=== PATIENT | male | born 1955 | race Caucasian/White ===

== ENCOUNTER → 2018-04-18 07:38 | Outpatient (CLI) | payer OTHER, SELFPAY ==
[2018-04-18 10:23] LABS: ALB/GLOB Ratio 1.2 RATIO (0.9-2.4); AST(SGOT) 26 U/L (15-37); Alanine Aminotransfer ALT/SGPT 25 U/L (16-61); Albumin, Serum 3.7 g/dL (3.2-5.0); Alkaline Phosphatase 60 U/L (45-117); Anion Gap 5 (5-15); BUN 18 mg/dL (7-18); BUN/Creat Ratio 20.3 RATIO (10-20); Calcium,Total 8.4 mg/dL (8.5-10.1); Chloride 102 mmol/L (98-107); Cholesterol 152 mg/dL (200); Creatinine, Serum 0.89 mg/dL (0.70-1.30); EST Glomerular Filtration Rate 92 mL/min (>60); Est Glom Filt Rate - Afr Amer 112 mL/min (>60); Globulin 3.1 g/dL (2.2-4.2); Glucose 85 mg/dL (74-106); High Density Lipoprotein 60 mg/dL; PSA,Total - Annual Screen 0.45 ng/mL (0.00-4.00); Potassium 3.9 mmol/L (3.5-5.1); Protein, Total 6.8 g/dL (6.4-8.2); Sodium Level 137 mmol/L (136-145); Triglycerides 39 mg/dL; Very Low Density Lipoprotein 8 mg/dL (5-40)
== END ==
PROVIDERS: Family Provider Family Medicine; PCP Family Medicine; Referring Provider Family Medicine; Visit Provider Family Medicine
DX: Z00.00 Encounter for general adult medical examination without abnormal findings (principal)
CPT/HCPCS: 36415; 80053; 80061; 84153; G0103

== ENCOUNTER → 2018-07-04 16:35 | Outpatient (CLI) | payer OTHER, SELFPAY ==
[2018-07-04 16:01] VITALS: BMI 23.1
--- NOTE | 2018-07-04 16:40 | RAD_ITS ---
STUDY: X-RAY - LEFT ELBOW REASON FOR EXAM: Male, 63 years old. Pain TECHNIQUE: 3 view(s) of the elbow. COMPARISON: None. FINDINGS: Normal visualized humerus, radius and ulna. Normal radiocapitellar and ulnotrochlear articulations. The soft tissue structures are unremarkable. RAD/Elbow min 3 Views IMPRESSION: Normal x-ray examination of the elbow. Electronically Signed: Tashi Baxter MD at 17:52 EST , Service support ,
--- OUTSIDE RECORDS SUMMARY | 2018-08-20 14:15 | XMS RPT_ITS ---
:1955 Author Organization OHIP Care Team Providers Name Role Phone Yari Rojas DO Attending Unavailable Crystal JEREZ, Yari Consulting Unavailable Brown, Adair Attending Unavailable Brown, Adair Referring Unavailable Brown, Adair Attending Unavailable Brown, Adair Referring Unavailable Brown, Adair Primary Care Unavailable Brown, Adair Attending Unavailable Brown, Adair Referring Unavailable Brown, Adair Attending Unavailable Brown, Adair Referring Unavailable Brown, Adair Primary Care Unavailable Purpose Purpose PROBLEMS PROBLEMS DATE TYPE CONDITION / CODE ATTENDING STATUS SOURCE 07/04/2018 Unknown M25.529 - Pain in Brown, Adair Active [facility] unspecified elbow [facility] / M25.529(ICD-10) Hospital Repository 04/18/2018 Unknown Z00.00 - Brown, Adair Active [place] Encounter for [place] medical Repository examination without abnormal findings / Z00.00(ICD-10) PROCEDURES PROCEDURES No Procedure Records FoundVITAL SIGNS VITAL SIGNS No Vital Signs Records FoundRESULTS RESULTS ELBOW MIN 3 VIEWS Observed: 07/04/2018 Status: F Source: [place] 4:41 PM [facility], [facility] HOSPITAL REPOSITORY [facility] Imaging Services [address] [place] [address] Elbow min 3 Views MR#: [id number] Acct: [id number] Name: MAGDY NÚÑEZ Rep #: [id number] : 1955 M 63 From: Tevin Baxter MD PCP: Adair Ramon DO Status: REG CLI Study: Elbow min 3 Views Date of Exam: 07/04/18 Exam# [id number] Ordering Dr: Adair Ramon DO STUDY: X-RAY - LEFT ELBOW REASON FOR EXAM: Male, 63 years old. Pain TECHNIQUE: 3 view(s) of the elbow. COMPARISON: None. FINDINGS: Normal visualized humerus, radius and ulna. Normal radiocapitellar and ulnotrochlear articulations. The soft tissue structures are unremarkable. RAD/Elbow min 3 Views IMPRESSION: Normal x-ray examination of the elbow. 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 Machine Operator: Signed INTERNAL MEDICINE Observed: 07/04/2018 Status: F Source: [place] OFFICE VISIT 4:29 PM [facility] Internal Medicine [address] [place] [address] [place] [address] OFFICE VISIT Date of Service: 07/04/18 MR#: [id number] Acct: [id number] Name: MAGDY NÚÑEZ Rep #: [id number] : 1955 Provider: Adair Ramon DO Age/Sex: 63/M Location: [facility] Status: Signed Intake Vital Signs07/04/18 Body Mass Index (BMI) 23.1 07/04/18 Height 6 ft 07/04/18 Weight: 169 lb 07/04/18 Body Mass Index (BMI) 22.9 07/04/18 Blood Pressure 156/81 H Intake Visit Reasons: Elbow pain Chief Complaint: Left Elbow pain Is patient in pain?: Yes (Left elbow pain - pt doesn't know scale) Allergies No Known Allergies Allergy (Unverified 07/04/18 16:01) Medications NK 04/17/18 [History Confirmed 07/04/18] PFSH Medical History Closed fracture of phalanx of foot (Acute) Hypertension (Chronic) Surgical History History of colonoscopy (Acute) History of orthopedic surgery (Acute) History of tonsillectomy (Acute) Family History Father Heart disease Arthritis Alcoholism Mother Hypertension Heart disease Social History Smoking Status: Former smoker how long ago did patient quit smokin alcohol intake: never substance use type: does not use what type of physical activity do you participate in: walking, weight training HPI HPI Chief Complaint: Left Elbow pain Details: MAGDY NÚÑEZ, is a 63 M who presents to the office today for evaluation of chronic elbow pain. Pain is been on and off for several months sometimes bad sometimes not so bad. He cannot relate this to any acute injury. ROS Const Constitutional: No chills, fatigue, fever(s), frequent falls, malaise, weakness, sleep problems or change in appetite Eyes Eyes: No blurry vision, change in vision, double vision, discharge or visual disturbances ENT ENT: No abnormal hearing, ear pain, ear pressure, tinnitus or dizziness/vertigo Resp Respiratory: No cough, shortness of breath or wheezing Cardio Cardiology: No chest pain at rest, chest pain with exertion, shortness of breath, dyspnea on exertion, generalized swelling, irregular heart rhythm, lightheadedness, orthopnea, fast heart rate or palpitations Gastro GI: No abdominal pain, change in bowel habits, constipation, diarrhea, nausea/dyspepsia or vomiting Genitourinary Male: No difficulty urinating, burning urination, painful urination, urinary incontinence, urinary frequency, urinary urgency, urinary hesitancy, urinary retention, blood in urine, Frequent nighttime urination/ nocturia, sexual problems, testicle lump or testicle pain Musc Musculoskeletal: Positive for joint pain (Left elbow); no back pain, joint swelling, limited range of motion, numbness or tingling Skin Skin: No change in skin color, itching, rash or wounds Breast Breast: No breast lump or breast pain Neuro Neurology: No frequent falls, weakness, abnormal hearing, numbness, tingling, unsteady gait/balance, dizziness, loss of vision, memory loss or visual disturbances Psych Psychiatric: No memory loss, No anxiety, No change in appetite, No depression, No Thoughts of harming yourself/Others Endo Endocrine: No fatigue, heat intolerance, increased thirst/drinking, increased hunger or increased urination Aller/Imm Allergy/Immunologic: No wheezing, itchy eyes or seasonal allergy symptoms Isai/Lymp Hematologic/Lymphatic: No easy bleeding, easy bruising or enlarged lymph nodes Exam Const General: cooperative, healthy appearing Musc Musculoskeletal: Yes joint tenderness (medial elbow pain) Assessment AND Plan 1. Medial epicondylitis of left elbow M77.02 Plan Patient was seen with a classic medial epicondylitis or golfer's elbow. The medial epicondyles appears more prominent on the left than the right so I got an x-ray to make sure there was no spurring, but I expect the x-ray will be normal. He was told to get a tennis elbow strap, told that anti-inflammatories are very little to help for this, and told that if this does not work with the strap and stretching exercises then the next step possibly might be to inject the elbow. Plan Detail Other Orders Orders: Coding Level of Care Code Off vis,est,level 3 Diagnoses Medial epicondylitis of left elbow M77.02 Laterality: left 07/04/18 1629 <Electronically signed by Adair Ramon DO> Date Adair Ramon DO Cosigner Signature: Date (if applicable) CC: COMPREHENSIVE METABOLIC Collected: 04/18/2018 Status: F Source: [place] VIVIEN 7:46 AM [facility] REPOSITORY TYPE CODE TESTS RESULT OUT OF RANGE REFERENCE UNITS LAB L501.0100 74-106 mg/dL Normal GLU 85 Result Comment: Please note revised GLUCOSE reference range effective 2017. LAB L501.1000 7-18 mg/dL Normal BUN 18 LAB L501.1100 0.70-1.30 mg/dL Normal CREAT,SERUM 0.89 Result Comment: The validity of the calculated GFR AND GFRAA in patients over 70 years has not been determined. Clinical correlation is essential. LAB L501.1110 >60 mL/min Normal EST GFR 92 Result Comment: Non- GFR Calc LAB L501.1115 >60 mL/min Normal EST GFR - AA 112 Result Comment: GFR Calc LAB L501.1300 10-20 RATIO High BUN/CRE 20.3 LAB L501.1500 6.4-8.2 g/dL T Normal PROT 6.8 LAB L501.1800 3.2-5.0 g/dL Normal ALB 3.7 LAB L501.1950 2.2-4.2 g/dL Normal GLOB 3.1 LAB L501.2000 0.9-2.4 RATIO Normal A/G 1.2 LAB L501.2200 8.5-10.1 mg/dL Low CA 8.4 LAB L501.4100 15-37 U/L Normal AST 26 LAB L501.4305 45-117 U/L Normal ALK P 60 LAB L501.4405 16-61 U/L Normal ALT 25 LAB L501.4600 0.20-1.00 mg/dL T Normal BILI 0.90 LAB L501.5300 136-145 mmol/L NA Normal 137 LAB L501.5600 3.5-5.1 mmol/L K Normal 3.9 LAB L501.5900 98-107 mmol/L CL Normal 102 LAB L501.6100 21.0-32.0 mmol/L Normal CO2 30.0 LAB L501.6200 5-15 Normal GAP 5 Performed By: #### L500.4050, L500.4100, L501.9910 #### [facility] [address] [place], [place], [address] LIPID PROFILE Collected: 04/18/2018 Status: F Source: [place] 7:46 AM [facility] REPOSITORY TYPE CODE TESTS RESULT OUT OF RANGE REFERENCE UNITS LAB L501.4900 200 mg/dL Normal CHOL 152 Result Comment: <200 mg/dL Desirable 200-240 mg/dL Borderline >240 mg/dL High Risk LAB L501.5000 mg/dL Normal TRIG 39 Result Comment: The drugs N-Acetylcysteine and Metamizole may falsely depress this assay. Serum Triglycerides Reference Interval Normal <150 mg/dL Borderline high 150 - 199 mg/dL High 200 - 499 mg/dL Very High > or = 500 mg/dL LAB L501.6400 mg/dL Normal HDL 60 Result Comment: The drugs N-Acetylcysteine and Metamizole may falsely depress this assay. Reference Range HDL <40 mg/dL Low HDL Cholesterol HDL >or= 60 mg/dL High HDL Cholesterol LAB L501.6500 0-130 mg/dL Normal LDL 84 LAB L501.6600 5-40 mg/dL Normal VLDL 8 Performed By: #### L500.4050, L500.4100, L501.9910 #### [facility] [address] [place], [address] PSA,TOTAL - ANNUAL Collected: 04/18/2018 Status: F Source: [place] SCREEN 7:46 AM [facility] REPOSITORY TYPE CODE TESTS RESULT OUT OF RANGE REFERENCE UNITS LAB L501.9910 0.00-4.00 ng/mL Normal PSA,TOT 0.45 SCREEN Result Comment: This test was performed using the TPSA assay method for the ChangePanda chemistry system. Values obtained with different assay methods cannot be used interchangably. When changing PSA assays in the course of monitoring a patient, additional sequential testing should be carried out to confirm baseline values. Performed By: #### L500.4050, L500.4100, L501.9910 #### [facility] [address] [place], [address] INTERNAL MEDICINE Observed: 04/17/2018 Status: F Source: [place] OFFICE VISIT 12:52 PM [facility] REPOSITORY [facility] [address] [place] [address] [place] [address] OFFICE VISIT Date of Service: 04/17/18 MR#: [id number] Acct: [id number] Name: MAGDY NÚÑEZ Rep #: [id number] : 1955 Provider: Adair Ramon DO Age/Sex: 62/M Location: [facility] Status: Signed Intake Vital Signs04/17/18 Height 6 ft Intake Visit Reasons: ANNUAL CHECK UP Chief Complaint: well check Is patient in pain?: No Allergies No Known Allergies Allergy (Unverified 04/17/18 11:22) Medications NK 04/17/18 [History Confirmed 04/17/18] [facility] History Closed fracture of phalanx of foot (Acute) Hypertension (Chronic) Surgical History History of colonoscopy (Acute) History of orthopedic surgery (Acute) History of tonsillectomy (Acute) Family History Father Heart disease Arthritis Alcoholism Mother Hypertension Heart disease Social History Smoking Status: Former smoker how long ago did patient quit smokin alcohol intake: never substance use type: does not use what type of physical activity do you participate in: walking, weight training HPI HPI Chief Complaint: well check Details: MAGDY NÚÑEZ, is a 62 M who presents to the office today for a routine check up. He has occasional light headed spells. ROS Const Constitutional: No weight change, body ache, chills, fatigue, sleep problems, fever(s), change in appetite, snoring, weakness, frequent falls, headache(s) or excessive sweating Eyes Eyes: No change in vision, eye pain, light sensitivity or blurry vision ENT ENT: No headache(s), abnormal hearing, ear pain, tinnitus, nasal congestion, sore throat or neck pain Resp Respiratory: No snoring, cough, shortness of breath or wheezing Cardio Cardiology: No excessive sweating, chest pain at rest, chest pain with exertion, shortness of breath, dyspnea on exertion, palpitations, orthopnea or lightheadedness Gastro GI: No abdominal pain, change in bowel habits, constipation, diarrhea, vomiting, nausea/dyspepsia or cramping Genitourinary Male: No painful urination, urinary incontinence, urinary frequency, urinary urgency, blood in urine, testicle pain or other Musc Musculoskeletal: No neck pain, abnormal walking, joint pain, back pain, limited range of motion, numbness or tingling Skin Skin: No redness, dry skin, itching, lesions, wounds or rash Neuro Neurology: No weakness, frequent falls, headache(s), abnormal hearing, abnormal walking, numbness, tingling, abnormal speech, dizziness or memory loss Psych Psychiatric: No change in appetite, No memory loss, No anxiety, No depression, No Thoughts of harming yourself/Others Endo Endocrine: No fatigue, excessive sweating, cold intolerance, increased thirst/drinking, heat intolerance, flushing or increased hunger Aller/Imm Allergy/Immunologic: No wheezing, itchy eyes, hives or seasonal allergy symptoms Isai/Lymp Hematologic/Lymphatic: No easy bleeding, easy bruising or enlarged lymph nodes Exam Const General: cooperative Nutritional Appearance: average body habitus Orientation: oriented x3 [facility] Head: normal to inspection Ears: hearing grossly normal bilaterally, TM's normal bilaterally Nose: external nose normal, nasal mucous membranes and turbinates normal Face and sinus: normal facial exam Mouth: oral mucosae normal Teeth and gingiva: dentition normal Throat: posterior oropharynx normal Eyes Pupils: PERRL Neck Neck: no lymphadenopathy Neck mass: No Thyroid: thyroid normal Resp Effort AND Inspection: normal respiratory effort, symmetric chest movement Auscultation: Bilateral: Clear to Auscultation Cardio Palpation: normal PMI Rate: regular rate Rhythm: regular rhythm Heart Sounds: S1 normal, S2 normal GI Inspection: normal to inspection Auscultation: normal bowel sounds Percussion: normal to percussion Palpation: no hepatosplenomegaly Rectal Exam: visual inspection normal, normal sphincter tone, prostate normal Penis: normal penis Scrotum: scrotum normal Testes: normal Skin General: no rashes or lesions noted Lesions: no lesions Neuro General: oriented x3 Cranial Nerves: CN's II-XI intact bilaterally Extrem General: no clubbing, cyanosis or edema Psych Appearance: grossly normal Mental Status: mental status grossly normal Speech and Movement: speech and movement normal Attitude: cooperative Assessment AND Plan Problems 1. Annual physical exam Z00.00 Plan This patient was seen for an annual physical examination he has a history of some dizzy spells but he thinks it is due to his bifocals because it tends to be when he is focusing closely and then gets back and focus is far it is very short transient and not terribly significant. Physical examination was entirely within normal limits labs were ordered patient is on no medications and is doing well. His immunizations are up-to-date he inquired about a pertussis but he had a date PT 3 years ago shingles vaccine is up-to-date and his colonoscopy needs to be done next year. Orders Orders: Plan Detail Follow Up 1 Year Coding Level of Care Code Off vis,est,prev 40-64yrs Diagnoses Annual physical exam Z00.00 04/17/18 1252 <Electronically signed by Adair Ramon DO> Date Adair Shaver Signature: Date (if applicable) CC: ALLERGIES ALLERGIES DATE TYPE / CODE NAME / CODE REACTION SEVERITY SOURCE 07/04/2018 Drug No Known Unknown [facility] Allergy/4160 Allergies/F00 Hospital [address]042(SNOMED 8538148(RXNOR Repository CT) M) ENCOUNTERS ENCOUNTERS ADMIT/DISCHARGE ACCOUNT ADMITTING ENCOUNTER LOCATION SOURCE NUMBER CLASS 08/14/2018 [id number] Ambulatory Building:[facility] [place] Practices Repository 07/04/2018 [id number] Ambulatory [facility] [place] [address] [facility] ing:MTRAD Repository 07/04/2018/ [id number] Ambulatory BMSBuilding:B [facility] 8 9 MS.BIM [facility] Repository 04/18/2018 [id number] Ambulatory [place] [facility] [address] [facility] ing:MTLAB Repository 04/17/2018/ [id number] Ambulatory BMSBuilding:B [facility] 8 0 [facility] Repository FUNCTIONAL STATUS FUNCTIONAL STATUS No Functional Status Records FoundEQUIPMENT EQUIPMENT No Equipment Records FoundPAYERS PAYERS ENCOUNTER GUARANTOR PAYER SUBSCRIBER SOURCE 08/14/2018 Magdy Henderson [facility] RouthDOB: Insurance:Medical RouthDOB: Repository [facility] [id number] [facility] Number: [facility] [id number] [place], [place] [address]Ehl: Date:9963-36-43[place] [address]Mbt: Name:Israel Dorsey (YX) [address], [place] () [id number]: 07/04/2018 MAGDY Henderson [place] [id number] [facility] Insurance:[facility] ROUTHDOB: [facility] [address]Gcarnh [id number] Hospital [address]Jlc: (330) Number: Repository [phone] () [id number] Date:1061-12-87PN [facility] [address], [place] [address]ZM: 07/04/2018 Secondary NOT GIVENUNK [facility] Insurance:SELF PAY [facility] Number: Effective Repository Date:2018-07-04 07/04/2018 MAGDY D Primary MAGDY D [place] [id number] [place] Insurance:UNITED ROUTHDOB: [facility] [id number] Hospital [address]Ecv: (330) Number: Repository [phone] () [id number] Date:2957-45-17XI [address] [address]HB: 07/04/2018 Secondary NOT GIVENUNK [place] Insurance:SELF PAY [facility] Number: Effective Repository Date:2018-07-04 04/18/2018 MAGDY D Primary MAGDY D [facility] [id number] Insurance:UNITED ROUTHDOB: [facility] [id number] Hospital [address]Kfh: (330) Number: Repository [phone] () [id number] Date:1826-42-60KQ [address] [address]XE: 04/18/2018 Secondary NOT GIVENUNK [facility] Insurance:SELF PAY [facility] Number: Effective Repository Date:2018-04-18 04/17/2018 MAGDY [id number] Primary MAGDY ROUTHDOB: [place] [address] Insurance:[place] [id number] [address]Lvz: (330) Number: Repository [phone] () [id number] Date:7730-32-52UZ [address] [address]ZI: 04/17/2018 Secondary NOT GIVENUNK [place] Insurance:SELF PAY [facility] Number: Effective Repository Date:2018-04-17 SOCIAL HISTORY SOCIAL HISTORY No Social History Records FoundFAMILY HISTORY FAMILY HISTORY No Family History Records FoundPREGNANCY No Status Records FoundADVANCE DIRECTIVES ADVANCE DIRECTIVES No Advanced Directives Records FoundINFORMATION SOURCE INFORMATION SOURCE DATE CREATED AUTHOR AUTHOR'S ORGANIZATION 08/14/2018 [facility]
== END ==
PROVIDERS: Family Provider Family Medicine; PCP Family Medicine; Referring Provider Family Medicine; Visit Provider Family Medicine
DX: M25.522 Pain in left elbow (principal)
CPT/HCPCS: 73080

== ENCOUNTER → 2019-08-19 10:00 | Outpatient (CLI) | payer OTHER, SELFPAY ==
[2019-08-19 09:41] VITALS: BMI 23.1
[2019-08-19 12:21] LABS: Anion Gap 5 (5-15); BUN 24 mg/dL (7-18); BUN/Creat Ratio 24.5 RATIO (10-20); Calcium,Total 9.1 mg/dL (8.5-10.1); Chloride 105 mmol/L (98-107); Creatinine, Serum 0.98 mg/dL (0.70-1.30); EST Glomerular Filtration Rate 82 mL/min (>60); Est Glom Filt Rate - Afr Amer 99 mL/min (>60); Glucose 92 mg/dL (74-106); Potassium 4.3 mmol/L (3.5-5.1); Sodium Level 139 mmol/L (136-145)
== END ==
PROVIDERS: PCP Family Medicine; Referring Provider Family Medicine; Visit Provider Family Medicine
DX: Z00.00 Encounter for general adult medical examination without abnormal findings (principal)
CPT/HCPCS: 36415; 80048

== ENCOUNTER → 2020-08-11 12:05 | Outpatient (CLI) | payer MEDICARE, OTHER, SELFPAY ==
[2020-08-11 11:39] VITALS: BMI 23.8
[2020-08-11 14:07] LABS: ALB/GLOB Ratio 1.1 RATIO (0.9-2.4); AST(SGOT) 25 U/L (15-37); Alanine Aminotransfer ALT/SGPT 22 U/L (16-61); Albumin, Serum 3.6 g/dL (3.2-5.0); Alkaline Phosphatase 71 U/L (45-117); Anion Gap 5 (5-15); BUN 22 mg/dL (7-18); BUN/Creat Ratio 24.7 RATIO (10-20); Calcium,Total 8.6 mg/dL (8.5-10.1); Chloride 103 mmol/L (98-107); Cholesterol 166 mg/dL (200); Creatinine, Serum 0.89 mg/dL (0.70-1.30); EST Glomerular Filtration Rate 91 mL/min (>60); Est Glom Filt Rate - Afr Amer 110 mL/min (>60); Globulin 3.2 g/dL (2.2-4.2); Glucose 83 mg/dL (74-106); High Density Lipoprotein 62 mg/dL; Potassium 4.1 mmol/L (3.5-5.1); Protein, Total 6.8 g/dL (6.4-8.2); Sodium Level 137 mmol/L (136-145); Triglycerides 48 mg/dL; Very Low Density Lipoprotein 10 mg/dL (5-40)
== END ==
PROVIDERS: PCP Family Medicine; Referring Provider Family Medicine; Visit Provider Family Medicine
DX: Z00.00 Encounter for general adult medical examination without abnormal findings (principal); I10 Essential (primary) hypertension
CPT/HCPCS: 36415; 80053; 80061

== ENCOUNTER 2021-08-16 13:57 | Outpatient (CLI) | payer MEDICARE, OTHER, SELFPAY ==
--- NOTE | 2021-08-16 | LES_PTH ---
PATIENT: SALBADOR HESTER LOC: [facility] U#:[id number] AGE/SX: 66/M ROOM: RE08/16/[address]: Dr. 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 See comment. AM:rikki 08/18/2021 COMMENT The lesion is transected at the base. Complete excision of the lesion is recommended. Invasive carcinoma cannot be ruled out. Case has been reviewed in consultation with Dr. Morin who concurs with the above diagnosis. IDC:SJ MICROSCOPIC DESCRIPTION Slides are reviewed. GROSS DESCRIPTION Received is one container labeled with the patient's name and not further designated. The specimen consists of a shave biopsy of santiago-white skin measuring 0.5 x 0.5 x 0.1 cm. The specimen is inked, bisected and submitted entirely in one cassette. / VITALIY:rikki 08/17/2021 TC:0 CPT: 86679
[2021-08-16 15:55] LABS: ALB/GLOB Ratio 1.1 RATIO (0.9-2.4); AST(SGOT) 31 U/L (15-37); Alanine Aminotransfer ALT/SGPT 25 U/L (16-61); Albumin, Serum 3.7 g/dL (3.2-5.0); Alkaline Phosphatase 66 U/L (45-117); Anion Gap 5 (5-15); BUN 17 mg/dL (7-18); Calcium,Total 9.2 mg/dL (8.5-10.1); Chloride 102 mmol/L (98-107); Creatinine, Serum 0.85 mg/dL (0.70-1.30); EST Glomerular Filtration Rate 96 mL/min (>60); Est Glom Filt Rate - Afr Amer 116 mL/min (>60); Globulin 3.4 g/dL (2.2-4.2); Glucose 99 mg/dL (74-106); Potassium 3.8 mmol/L (3.5-5.1); Protein, Total 7.1 g/dL (6.4-8.2); Sodium Level 137 mmol/L (136-145)
== END 2021-08-16 23:59 | disposition short-term general hospital (02) ==
LOC: BIMLAB 13:59
PROVIDERS: PCP Family Medicine; Visit Provider Family Medicine
DX: C44.320 Squamous cell carcinoma of skin of unspecified parts of face (principal); L57.8 Other skin changes due to chronic exposure to nonionizing radiation
CPT/HCPCS: 36415; 80053; 88305

== ENCOUNTER → 2022-05-09 | Outpatient (CLI) | payer MEDICARE, OTHER, SELFPAY ==
[2022-05-09 16:53] LABS: Anion Gap 4 (5-15); BUN 18 mg/dL (7-18); BUN/Creat Ratio 20.8 RATIO (10-20); Calcium,Total 9.3 mg/dL (8.5-10.1); Chloride 100 mmol/L (98-107); Creatinine, Serum 0.87 mg/dL (0.70-1.30); EST Glomerular Filtration Rate 93 mL/min (>60); Est Glom Filt Rate - Afr Amer 113 mL/min (>60); Glucose 86 mg/dL (74-106); Potassium 4.3 mmol/L (3.5-5.1); Sodium Level 136 mmol/L (136-145)
== END | disposition home or self-care (01) ==
LOC: BIMLAB 15:54
PROVIDERS: PCP Family Medicine; Referring Provider Family Medicine; Visit Provider Family Medicine
DX: I10 Essential (primary) hypertension (principal)
CPT/HCPCS: 36415; 80048

== ENCOUNTER → 2023-07-25 | Outpatient (CLI) | payer MEDICARE, OTHER, SELFPAY ==
--- OUTSIDE RECORDS SUMMARY | 2023-07-25 14:47 | XMS RPT_ITS | CCD ---
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 Name Role Phone CrytsalYari Unavailable Unavailable Yari Rojas Unavailable Unavailable CrystalYari Unavailable Jah Myers Unavailable Ramon Felix Unavailable Unavailable Unavailable Unavailable Vianca Villareal Unavailable Unavailable Medications Completed/Discontinued Medications Medication Drug Class(es) Dates Sig (Normalized) Sig (Original) hydrocortisone 25 mg/ml topical cream (5 sources) Corticosteroid Start: 08-14-2018 End: 05-30-2019 Anusol-HC 2.5 % Rectal Cream 1/4 cream to external hemorroid bid for 0 days Quantity: 15 {Gram} Refills: 0 Ordered: 30-May-2019 Vianca Villareal LPN Start : 14-Aug-2018 End : 30-May-2019 Inactive NEGATED: Highlighted row has not occurred!drug or medication (5 sources) No Known Historical Medications Problems Active Problems Problem Classification Problem Date Documented Da te Episodic/Chronic Hemorrhoids (5 sources) External hemorrhoids; Translations: [External hemorrhoid] 08-14-2018 Episodic Other acquired deformities (3 sources) Deformity of rib; Translations: [Rib deformity] 05-30-2019 Episodic Other circulatory disease (5 sources) H/O: hypertension; Translations: [Hypertension] 08-14-2018 Episodic Residual codes; unclassified (10 sources) FH: Diabetes mellitus; Translations: [Family history of diabetes mellitus] 08-14-2018 Episodic Residual codes; unclassified (5 sources) H/O: Disorder; Translations: [Hemorrhoids] 08-14-2018 Episodic Residual codes; unclassified (1 source) Body mass index (BMI) 23.0-23.9, adult; Translations: [BMI 23.0-23.9, adult] 08-14-2018 Episodic Past or Other Problems Problem Classification Problem Date Documented Da te Episodic/Chronic Essential hypertension (5 sources) Benign hypertension; Translations: [Hypertension, benign] Resolved: 08-14-2018 08-14-2018 Chronic Results Test Name Value Interpretation Reference Range Facil ity Vital Signs Date Time Vital Sign Value Performing Clinician Facility 05-30-2019 11:53-0500 BMI (Body Mass Index) 23.22 kg/m2 Yarijuana Jeanon [facility] Work Phone: 05-30-2019 11:53-0500 Body Temperature 97.9 [degF] Yari Crystal [facility] Work Phone: Encounters Encounter Date Encounter Type Care Provider Facility Start: 05-30-2019 End: 05-30-2019 Office outpatient visit 5 minutes Yari Rojas [facility] Start: 05-30-2019 [facility] Start: 08-14-2018 End: 08-14-2018 Initial preventive medicine new patient 40-64yrs Yari Rojas [facility] Start: 07-29-2018 Patient encounter procedure Yari Rojas [facility] Start: 07-02-2017 End: 07-04-2017 Ambulatory [facility] Procedures Date Procedure Procedure Detail Performing Clinician Marcia Felix Plan of Treatment Date Care Activity Detail Author Start: 05-30-2019 Procedure Education Eprescribed prescriptions (G8553) [facility] Work Phone: Start: 08-14-2018 Procedure Education Eprescribed prescriptions (G8553) [facility] Work Phone: Start: 08-14-2018 Provider Instructions for Treatment [facility] Work Phone: Start: 08-14-2018 Glucose mass conc GLUCOSE (70737) [facility] Work Phone: Start: 08-14-2018 Protein mass conc LIPOPROTEIN, BLD, BY NMR (14646) [facility] Work Phone: [facility] Work Phone: BMI 23.0-23.9, a dult : Eprescribed prescriptions (G8553) [facility] Work Phone: Payers Date Payer Category Payer Unknown [id number] 1955 Unknown [id number] Unknown Medical [facility]3] Social History Date Type Detail Facility Alcohol Use: Former smoker [facility] Work Phone: Caffeine use Caffeine use [facility] Work Phone: Functional Status Date Assessment Result Facility 09-20-2018 LP-IR Score LP-IR Score 41 [facility] Work Phone: Summary Purpose Family History Unknown Family Member Name Dates Details Father Comments:alcoholic, heart di sease Status:Active Maternal Grandfather Comments:diabetes Status:Active Mother Comments:DM 2, heart disease Status:Active Paternal Grandfather Comments:alcoholic Status:Active Unknown Family Member Name Dates Details Father Comments:alcoholic, heart di sease Status:Active Maternal Grandfather Comments:diabetes Status:Active Mother Comments:DM 2, heart disease Status:Active Paternal Grandfather Comments:alcoholic Status:Active Unknown Family Member Name Dates Details Father Comments:alcoholic, heart di sease Status:Active Maternal Grandfather Comments:diabetes Status:Active Mother Comments:DM 2, heart disease Status:Active Paternal Grandfather Comments:alcoholic Status:Active Advance Directives Name Dates Details Immunization Registry [place] - Effective on 08/14/2018. Expiration date unspecified Effective:14-Aug-2018 Name Dates Details Immunization Registry [facility] - Effective on 08/14/2018. Expiration date unspecified Effective:14-Aug-2018 Name Dates Details Immunization Registry [facility] - Effective on 08/14/2018. Expiration date unspecified Effective:14-Aug-2018 Instructions Name Dates Details BMI 23.0-23.9, adult : How t o access health information online Indication:BMI 23.0-23.9, adult BMI 23.0-23.9, adult : How t o access health information online - Detail Indication:BMI 23.0-23.9, adult BMI 23.0-23.9, adult : Patie nt Instructions Indication:BMI 23.0-23.9, adult Name Dates Details How to access health informa tion online Indication:Nonsmoker Start:30-May-2019 Instruction Type:Patient Education How to access health informa tion online - Detail Indication:Nonsmoker Start:30-May-2019 Instruction Type:Patient Education Patient Instructions Indication:Nonsmoker Start:30-May-2019 Instruction Type:Provider Instructions for Treatment How to access health informa tion online Indication:BMI 23.0-23.9, adult Start:14-Aug-2018 Instruction Type:Patient Education How to access health informa tion online - Detail Indication:BMI 23.0-23.9, adult Start:14-Aug-2018 Instruction Type:Patient Education Patient Instructions Indication:BMI 23.0-23.9, adult Start:14-Aug-2018 Instruction Type:Provider Instructions for Treatment Name Dates Details How to access health informa tion online Indication:Nonsmoker Start:30-May-2019 Instruction Type:Patient Education How to access health informa tion online - Detail Indication:Nonsmoker Start:30-May-2019 Instruction Type:Patient Education Patient Instructions Indication:Nonsmoker Start:30-May-2019 Instruction Type:Provider Instructions for Treatment How to access health informa tion online Indication:BMI 23.0-23.9, adult Start:14-Aug-2018 Instruction Type:Patient Education How to access health informa tion online - Detail Indication:BMI 23.0-23.9, adult Start:14-Aug-2018 Instruction Type:Patient Education Patient Instructions Indication:BMI 23.0-23.9, adult Start:14-Aug-2018 Instruction Type:Provider Instructions for Treatment Additional Source Comments (unrecognized sect ion and content) No Status Records FoundNo Status Records FoundNo Status Records Found INFORMATION SOURCE (unrecogn ized section and content) DATE CREATED AUTHOR AUTHOR'S ORGANIZ ATION 07/29/2018 [facility] DATE CREATED AUTHOR AUTHOR'S ORGANIZ ATION 05/09/2020 [facility] [place] FOR RECORDS PERTAINING TO PATIENTS WHO ARE OR HAVE BEEN ENROLLED IN A CHEMICAL DEPENDENCY/SUBSTANCEABUSE PROGRAM, SOME INFORMATION MAY BE OMITTED. This clinical summary was aggregated from multiple sources. Caution should be exercised in using it in the provision of clinical care. This summary normalizes information from multiple sources, and as a consequence, information in this document may materially change the coding, format and clinical context of patient data. In addition, data may be omitted in some cases. CLINICAL DECISIONS SHOULD BE BASED ON THE PRIMARY CLINICAL RECORDS. [facility]. provides no warranty or guarantee of the accuracy or completeness of information in this document.
[2023-07-25 16:23] LABS: Cholesterol 178 mg/dL (200); High Density Lipoprotein 63 mg/dL; PSA,Total- Diagnostic 2.78 ng/mL (0.0-4.0); Triglycerides 52 mg/dL; Very Low Density Lipoprotein 10 mg/dL (5-40)
== END | disposition home or self-care (01) ==
LOC: BIMLAB 14:19
PROVIDERS: PCP Family Medicine; Referring Provider Family Medicine; Visit Provider Family Medicine
DX: R35.1 Nocturia (principal); I10 Essential (primary) hypertension
CPT/HCPCS: 36415; 80061; 84153

== ENCOUNTER → 2024-07-18 | Outpatient (CLI) | payer MEDICARE, OTHER, SELFPAY ==
[2024-07-18 10:34] LABS: Absolute Lymphocyte Count 0.47 X10^3/uL (0.83-4.51); Absolute Neutrophil Count 4.2 X10^3/uL (2.0-7.7); Basophil# 0.03 X10^3/uL; Basophil% 0.6 % (0-1); Eosinophil# 0.05 X10^3/uL; Hematocrit 41.1 % (40-54); Hemoglobin 13.6 g/dL (13.0-16.5); Lymphocyte # 0.47 X10^3/ul (0.83-4.51); Lymphocyte % 9.1 % (19-41); Mean Corp Hgb Conc 33.1 g/dL (32-36); Mean Corpuscular Hgb 30.9 pg (27.0-32.0); Mean Corpuscular Volume 93.4 fL (80-94); Mean Platelet Vol. 8.8 fl (6.2-12.0); Monocyte# 0.46 X10^3/uL; Monocyte% 8.9 % (0-10); NRBC Flagged by Analyzer 0 % (0-5); Neutrophil # 4.16 X10^3/uL (2.7-7.7); Neutrophil % 80.2 % (47-70); POSITIVE DIFFERENTIAL YES; Platelet Count 181 K/mm3 (150-450); RBC Distribution Width CV 13.4 % (11.6-14.6); RBC Distribution Width SD 45.9 fl (35.1-43.9); White Blood Count 5.2 K/mm3 (4.4-11.0)
[2024-07-18 10:58] LABS: Vitamin D,25 Hydroxy 20.8 ng/mL
[2024-07-18 12:16] LABS: ALB/GLOB Ratio 1.2 RATIO (0.9-2.4); AST(SGOT) 30 U/L (15-37); Alanine Aminotransfer ALT/SGPT 25 U/L (16-61); Albumin, Serum 3.5 g/dL (3.2-5.0); Alkaline Phosphatase 59 U/L (45-117); Anion Gap 6 (5-15); BUN 17 mg/dL (7-18); BUN/Creat Ratio 20.5 RATIO (10-20); Calcium,Total 8.8 mg/dL (8.5-10.1); Chloride 102 mmol/L (98-107); Cholesterol 161 mg/dL (200); Creatinine, Serum 0.83 mg/dL (0.70-1.30); EST Glomerular Filtration Rate 98 mL/min (>60); Est Glom Filt Rate - Afr Amer 118 mL/min (>60); Glucose 91 mg/dL (74-106); High Density Lipoprotein 70 mg/dL; PSA,Total - Annual Screen 0.73 ng/mL (0.00-4.00); Protein, Total 6.5 g/dL (6.4-8.2); Sodium Level 136 mmol/L (136-145); Triglycerides 47 mg/dL; Very Low Density Lipoprotein 9 mg/dL (5-40)
== END | disposition home or self-care (01) ==
LOC: MTLAB 07:55
PROVIDERS: PCP Family Medicine; Referring Provider Family Medicine; Visit Provider Family Medicine
DX: I10 Essential (primary) hypertension (principal); R53.83 Other fatigue; Z13.220 Encounter for screening for lipoid disorders; Z12.5 Encounter for screening for malignant neoplasm of prostate
CPT/HCPCS: 36415; 80053; 80061; 82306; 84153; 85025; G0103